=== PATIENT | male | born 1980 | race Caucasian/White ===

== ENCOUNTER 2017-10-08 05:48 | Day surgery (SDC) | payer OTHER ==
[~2017-10-08] VITALS: Ht 182.9 cm; Wt 90.7 kg
[2017-10-08] MEDS ORDERED: BENADRYL25 MG PO (06:03)
--- NOTE | 2017-10-08 08:16 | NUR ---
10/08/17 0816 Kimberlyn Machuca 0809-PATIENT ARRIVED TO PACU ON 2L NC O2 SAT 97% NONAROUSABLE. LAYING ON LEFT SIDE. ABDOMEN ROUND AND SOFT.
--- NOTE | 2017-10-09 10:30 | OR ---
[facility] [address] [place], [place] [address] Signed DATE OF OPERATION: 10/08/2017 SURGEON: Kindra Tripp MD PREOPERATIVE DIAGNOSES: A 30-pound weight loss, rectal bleeding and suprapubic pain, underlying schizophrenia disorder. POSTOPERATIVE DIAGNOSES: Polyp at 15 cm and internal hemorrhoids. PROCEDURE: Total colonoscopy to cecum with hot snare polypectomy x1. ANESTHESIA: Intravenous sedation with propofol infusion, Tom Wagner CRNA INDICATION: This 37-year-old, white man is a prisoner at [facility] and a patient of Dr. Gerry Dyer. He has underlying schizophrenia, for which he takes Benadryl on a daily basis. He takes no other psychotropic medications. He has complained of a 30-pound weight loss over the past several months. Additionally, he has had episodic rectal bleeding and some suprapubic discomfort. He is admitted at this time to undergo colonoscopy to better characterize the problem. He understands risks of bleeding, infection, perforation; and wished to proceed. FINDINGS: The prep was excellent. Complete colonoscopy was undertaken to the cecum. There was no sign of diverticular formation, colitis, or cancer, but there was a polyp at 15 cm, which was excised with hot snare polypectomy technique. Additionally, he had internal hemorrhoids. PROCEDURE IN DETAIL: The patient was brought to the endoscopy suite and placed in lateral decubitus position and given intravenous sedation with propofol infusional technique with full cardiopulmonary monitoring by the nurse javascript software engineer. Digital rectal examination was normal. An Olympus video colonoscope was passed in the rectum and manipulated throughout the colon ultimately intubating the cecum itself. With various manipulations, attempts were Electronically Signed By: KINDRA TRIPP MD 10/09/17 1030 PATIENT NAME: CARLOS LEAL OPERATIVE REPORT DATE OF : 76 PHYSICIAN: KINDRA TRIPP MD REPORT #: [id number] REPORT IS CONFIDENTIAL AND NOT TO BE RELEASED WITHOUT AUTHORIZATION [facility] [address] [place] [id number] Signed made to pass into the ileocecal valve, but it was not forthcoming. On that basis, the scope was carefully withdrawn. Examination throughout showed no sign of abnormality until the sigmoid at approximately 15 cm where a sessile polyp was noted. This was excised with hot snare polypectomy technique. The specimen was passed for permanent pathology. Further withdrawal of scope allowed for retroflexed view of the rectum showing internal hemorrhoidal changes. The patient was then taken to recovery room in good condition having suffered no complication. CONCLUDING DIAGNOSES: 1. Polyp at 15 cm, not contributory to current symptoms. 2. Internal hemorrhoids, probably accounting for episodic rectal bleeding. PLAN: Recommend high-fiber diet or Citrucel or Metamucil fiber supplement on daily basis. If persistent bleeding is noted, hemorrhoidal banding could be considered. He will return to the ongoing care of Dr. Dyer in the meantime. MD KEN Lopez/ALICIA /[id number] cc: Gerry Dyer MD Electronically Signed By: KINDRA TRIPP MD 10/09/17 1030 PATIENT NAME: MELCARLOS OPERATIVE REPORT DATE OF : 76 PHYSICIAN: KINDRA TRIPP MD REPORT #: [id number] REPORT IS CONFIDENTIAL AND NOT TO BE RELEASED WITHOUT AUTHORIZATION
== END 2017-10-08 08:45 | disposition home or self-care (01) ==
LOC: DS 05:48 → OPS 05:48 → DS 06:45 → OPS 06:45
PROVIDERS: Surgery
PROC: 0DBH8ZX Excision of Cecum, Via Natural or Artificial Opening Endoscopic, Diagnostic (ICD-10-PCS; principal; 2017-10-08 06:45)
DX: D3A.8 Other benign neuroendocrine tumors (principal); K64.8 Other hemorrhoids; F99 Mental disorder, not otherwise specified; L98.8 Other specified disorders of the skin and subcutaneous tissue; Z88.0 Allergy status to penicillin; Z88.8 Allergy status to other drugs, medicaments and biological substances; Z79.899 Other long term (current) drug therapy; Z98.890 Other specified postprocedural states
CPT/HCPCS: 00810; J2704; J7120